=== PATIENT | female | born 1950 | race Caucasian/White ===

== ENCOUNTER → 2023-03-21 11:20 | Outpatient (REF) | payer MEDICARE, OTHER, SELFPAY | LOC: HWRAD 11:20 | PROVIDERS: ATTENDING PHYSICIAN Internal Medicine Critical Care Medicine; FAMILY PHYSICIAN Internal Medicine | DX: J84.9 Interstitial pulmonary disease, unspecified (principal) | CPT/HCPCS: 71250 ==

== ENCOUNTER 2023-12-03 10:26 | Outpatient (RCR) | payer MEDICARE, OTHER, SELFPAY | END 2023-12-03 23:59 | disposition home or self-care (01) | LOC: RPT 10:26 | PROVIDERS: ATTENDING PHYSICIAN Internal Medicine | DX: I89.0 Lymphedema, not elsewhere classified (principal) | CPT/HCPCS: 97163; 97535 ==

== ENCOUNTER → 2023-12-20 14:40 | Outpatient (REF) | payer MEDICARE, OTHER, SELFPAY | LOC: RCS 14:40 | PROVIDERS: ATTENDING PHYSICIAN Internal Medicine Critical Care Medicine; FAMILY PHYSICIAN Internal Medicine | DX: I27.20 Pulmonary hypertension, unspecified (principal); J84.9 Interstitial pulmonary disease, unspecified | CPT/HCPCS: 71046; 93306 ==

== ENCOUNTER 2024-01-01 14:12 | Outpatient (RCR) | payer MEDICARE, OTHER, SELFPAY | END 2024-01-01 23:59 | disposition home or self-care (01) | LOC: RPT 14:12 | PROVIDERS: ATTENDING PHYSICIAN Internal Medicine | DX: I89.0 Lymphedema, not elsewhere classified (principal); Z73.6 Limitation of activities due to disability; R26.89 Other abnormalities of gait and mobility | CPT/HCPCS: 97140; 97535 ==

== ENCOUNTER 2024-01-28 12:06 | Outpatient (RCR) | payer MEDICARE, OTHER, SELFPAY | END 2024-01-28 23:59 | disposition home or self-care (01) | LOC: RPT 12:06 | PROVIDERS: ATTENDING PHYSICIAN Internal Medicine | DX: I89.0 Lymphedema, not elsewhere classified (principal); Z73.6 Limitation of activities due to disability; R26.89 Other abnormalities of gait and mobility | CPT/HCPCS: 97140; 97535 ==

== ENCOUNTER 2024-08-05 07:09 | Day surgery (SDC) | payer MEDICARE, OTHER, SELFPAY ==
[2024-08-05 07:38] VITALS: BMI 35.9
[2024-08-05 07:39] VITALS: BP 129/70
[2024-08-05 09:31] VITALS: BP 103/65
[2024-08-05 09:51] VITALS: BP 96/61
[2024-08-05 10:06] VITALS: BP 100/58
--- NOTE | 2024-08-05 10:16 | ITS.CL.CATH ---
Safety Compliance Specialist - Catheterization
Cardiac Catheterization
Procedure Report:
RIGHT HEART CATHETERIZATION
Date of Procedure: 08/05/2024
Referring: Maria Owen M.D.
INDICATION: Assessment of volume status, known idiopathic pulmonary fibrosis.
ACCESS:
5 Jamaican right antecubital vein using a previously placed IV.
CATHETERS:
5 Jamaican balloon wedge.
PROCEDURE:
An IV was placed by the nursing staff in the right antecubital fossa. The patient was prepped and draped in standard sterile fashion, including copious cleansing of the IV and IV site. The area around the IV was anesthetized with 1% lidocaine. A 5
Jamaican sheath was inserted into the basilic vein. A 5 Jamaican balloon wedge catheter was advanced through the sheath into the superior vena cava. An SVC oxygen saturation was drawn. The balloon wedge catheter was advanced into the pulmonary artery
and a pulmonary artery oxygen saturation was drawn. Arterial oxygen saturation was assumed from pulse oximetry. Cardiac output was calculated using the Waldemar equation. The PA, wedge, RV and RA pressures were measured on pullback. The balloon wedge
catheter was removed. The 5 Jamaican sheath was removed and manual pressure was held for hemostasis.
Weight (kg): 87.5
PA (s/d/x mmHg): 76/27/43
PCWP (a/v/x mmHg): 13/12
RV (s/x mmHg): 76/7
RA (a/v/x mmHg):
SVC SvO2 (%): 68.1
IVC SvO2 (%): Not obtained.
RA SvO2 (%): Not obtained.
RV SvO2 (%): Not obtained.
PA SvO2 (%): 72.1
SaO2 (%): 100 (assumed, on 6LNC)
Hbg (g/dL): 13.0
[place]
CO (liters/minute): 3.60
CI (liters/minute/m2): 1.92
Thermodilution
CO (liters/minute): Not performed.
CI (liters/minute/m2): Not performed.
TPG (mmHg): 31
PVR (Hugo Units): 8.61
AVO2 Difference (Volume %): 4.93
Radiation (mGy): 4.33
DAP (cm2.Gy): 0.5104
Fluoroscopy time (minutes): 0.5
CONCLUSION:
1. Normal filling pressures (PCWP = 12 mmHg at 87.5 kg).
2. 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
anticentromere antibody positive).
RECOMMENDATIONS:
1. Expectant management after right heart catheterization via right antecubital approach.
2. Maintain current diuretic regimen as filling pressures are stable and normal.
3. Continue treatment for idiopathic pulmonary fibrosis with possible rheumatic component.
Copy to: Maria Owen M.D., Ezio Freedman M.D., Addison LeyvaO.
Mario Tena D.O., FACC, FACP
[2024-08-05 10:21] VITALS: BP 104/57
== END 2024-08-05 10:35 | disposition home or self-care (01) ==
LOC: CATH 07:09
PROVIDERS: ATTENDING PHYSICIAN Internal Medicine Cardiovascular Disease; FAMILY PHYSICIAN Internal Medicine; OTHER PHYSICIAN Internal Medicine Cardiovascular Disease
DX: J84.112 Idiopathic pulmonary fibrosis (principal); I27.21 Secondary pulmonary arterial hypertension; R09.02 Hypoxemia; I50.32 Chronic diastolic (congestive) heart failure; Z99.81 Dependence on supplemental oxygen; J84.9 Interstitial pulmonary disease, unspecified; E66.01 Morbid (severe) obesity due to excess calories; R60.0 Localized edema; Z79.82 Long term (current) use of aspirin; Z79.899 Other long term (current) drug therapy
CPT/HCPCS: 93451; C1894